=== PATIENT | female | born 1985 | race Caucasian/White ===

== ENCOUNTER 2024-01-15 08:17 | Emergency (ER) | payer OTHER, BC ==
[~2024-01-15] VITALS: Ht 165.1 cm; Wt 75.0 kg
[2024-01-15 08:21] VITALS: BP 128/86; PULSE 110; RESP 16; O2SAT 99
[2024-01-15 08:34] VITALS: TEMP 98.6
[2024-01-15] MEDS: ACETAMINOPHEN 325MG TABLET PO ONE (08:34)
== END 2024-01-15 09:28 | disposition left against medical advice (07) ==
LOC: ER 08:32
DX: S69.91XA Unspecified injury of right wrist, hand and finger(s), initial encounter (principal); V49.9XXA Car occupant (driver) (passenger) injured in unspecified traffic accident, initial encounter; Y93.9 Activity, unspecified; Y92.89 Other specified places as the place of occurrence of the external cause; Y99.8 Other external cause status
CPT/HCPCS: 99283